=== PATIENT | female | born 1960 | race Caucasian/White ===

== ENCOUNTER → 2024-03-03 21:53 | Outpatient (ROUT) | payer MEDICARE, SELFPAY | PROVIDERS: Visit Provider Registered Nurse | DX: N39.0 Urinary tract infection, site not specified (principal) | CPT/HCPCS: 87086 ==

== ENCOUNTER 2024-03-09 13:05 | Emergency (ER) | payer MEDICARE, SELFPAY ==
[2024-03-09] VITALS (8 sets, daily range): BP systolic 106–128; BP diastolic 69–87; PULSE 40–109; RESP 12–22; TEMP 36.4; O2SAT 82–98; BMI 15.3
--- NOTE | 2024-03-09 13:09 | ED_ITS ---
HPI - Eye Problem General Chief complaint: Neuro Symptoms/Deficit Stated complaint: L Fixed Pupil Time Seen by Provider: 03/09/24 13:08 History of Present Illness HPI Narrative: Patient is a 63-year-old female history of COPD on oxygen presenting today with left 6th dilated pupil. She is currently residing at [facility] she was admitted to would be hospital for a COPD exacerbation and pneumonia. She really has no complaints but feels like her allergies are acting up. She says that her eyes are goopy but there is no gross drainage she does not continually wiped them. She has not put any new drops in her eyes. She has not on any sort of anticoagulation or antiplatelet medication. She has no numbness tingling or weakness. She has a slight headache but no significant nausea or vomiting. She has no chest pain or worsening shortness of breath. Records from [facility] has been received and reviewed she was admitted on February 22 with pneumonia sepsis and COPD exacerbation. She was given steroids bronchodilators and antibiotics. She was admitted for about 3 days and discharged to a retirement facility. She has severe COPD there is a pulsed form that says do not resuscitate Related Data Allergies Allergy/AdvReac Type Severity Reaction Status Date / Time No Known Drug Allergies Allergy Verified 03/09/24 13:44 Patient History Social History Smoking Status: Former smoker Exam Initial Vital Signs Initial Vital Signs: Vital Signs Pulse Oximetry 82 L 03/09/24 13:09 GENERAL: Alert chronically ill 63-year-old female appears older than stated age HEENT: Head atraumatic,EOMI, pupils reactive, EOMI-left eye more dilated than the right sluggish to respond does not completely close Right pupil more normal CARDIOVASCULAR: Regular rate and rhythm without murmurs, rubs or gallops. RESPIRATORY: Breath sounds equal bilaterally, no wheezes rales or rhonchi. ABDOMEN: Soft, nontender. Normoactive bowel sounds all 4 quadrants. No guarding or rebound. EXTREMITIES: Normal range of motion, no clubbing or edema. Neurovascularly intact NEUROLOGICAL: Alert and oriented x4.Normal gait and speech. Cranial nerves II through XII grossly intact. Good mnawjc-bp-ibzd, good mjys-gl-ekme, strength equal bilaterally, no dysarthria or aphasia, sensation in tact to soft touch bilaterally, no visual changes, no facial droop SKIN: Warm, dry, no laceration, no petechiae, no rashes or lesions. Scores NIH Stroke Scale Level of Conciousness: Alert, keenly responsive Ask month/age: Answers both questions correctly. Open/close eyes, close hand: Performs both tasks correctly Best gaze horizontal: Normal Visual paredes: No visual loss Facial palsy: Normal symetrical movement Left arm drift: No drift for full 10 sec Right arm drift: No drift for full 10 sec Left leg drift: No drift for full 5 sec Right leg drift: No drift for full 5 sec Limb ataxia: Absent Sensory on face/arms/legs: Normal, no sensory loss Best language: No aphasia, normal Dysarthria: Normal Extinction or inattention: No abnormality Total NIH Stroke scale score: 0 Course Orders Ordered: ED Orders 03/09/24 13:26 CT angio head and neck Stat CT head/brain wo con Stat 03/09/24 13:39 CBC Auto Diff [Complete Blood Count AUTO DIFF] Stat CMP [Comprehensive Metabolic Panel] Stat Discontinued Medications Acetaminophen (Acetaminophen 325 Mg Tablet) 975 mg PO NOW ONE Stop: 03/09/24 14:16 Last Admin: 03/09/24 14:47 Dose: 975 mg Documented By: JERRY Vital Signs Vital signs: Vital Signs - 8 hr 03/09/24 13:09 03/09/24 13:10 03/09/24 13:10 Temperature Pulse Rate 40 L Respiratory Rate Blood Pressure 122/87 Pulse Oximetry 82 L 84 L Oxygen Delivery Method Oxygen Flow Rate 03/09/24 13:13 03/09/24 13:30 03/09/24 13:30 Temperature 97.6 F Pulse Rate 107 H 105 H Respiratory Rate 22 22 Blood Pressure 122/87 128/84 Pulse Oximetry 93 97 Oxygen Delivery Method Nasal Cannula Oxygen Flow Rate 2 03/09/24 13:57 03/09/24 13:57 03/09/24 14:00 Temperature Pulse Rate 109 H Respiratory Rate 21 Blood Pressure 120/78 126/82 Pulse Oximetry 95 Oxygen Delivery Method Oxygen Flow Rate 03/09/24 14:00 03/09/24 14:30 03/09/24 14:30 Temperature Pulse Rate 104 H 93 H Respiratory Rate 17 12 Blood Pressure 118/69 Pulse Oximetry 98 97 Oxygen Delivery Method Oxygen Flow Rate 03/09/24 16:10 03/09/24 16:10 Temperature Pulse Rate 92 H Respiratory Rate Blood Pressure 106/75 Pulse Oximetry 95 Oxygen Delivery Method Oxygen Flow Rate MDM - Eye Problem Lab Data 03/09/24 13:39 03/09/24 13:39 Labs: Lab Results 03/09/24 Range/Units 13:39 WBC 12.4 H (4.5-11.0) X10^3/uL RBC 3.47 L (4.0-5.2) X10^6/uL Hgb 10.7 L (12.0-16.0) g/dL Hct 32.6 L (36-46) % MCV 93.8 (80-100) fL MCH 30.9 (26-34) PG MCHC 32.9 (30-36) % RDW 14.9 H (11.6-14.8) % Plt Count 307 (150-400) X10^3/uL Neut % (Auto) 85.4 H (50-75) % Lymph % (Auto) 7.8 L (25-40) % [place] % (Auto) 5.4 (3-14) % Eos % (Auto) 0.8 L (2-4) % Baso % (Auto) 0.6 (0-2) % Neut # (Auto) 17142 H (6370-0307) /uL Lymph # (Auto) 1000 L (0646-4323) /uL [place] # (Auto) 700 (0-900) /uL Eos # (Auto) 100 (0-450) /uL Baso # (Auto) 100 (0-100) /uL Sodium 132 L (137-145) mmol/L Potassium 4.3 (3.4-5.1) mmol/L Chloride 95 L (98-107) mmol/L Carbon Dioxide 32 (22-32) mmol/L BUN 19 H (7-17) mg/dL Creatinine 0.42 L (0.52-1.04) mg/dL Estimated GFR > 60 (>60) mL/min BUN/Creatinine Ratio 45.2 H (6-22) Glucose 78 L (80-110) mg/dL Calcium 8.7 (8.4-10.2) mg/dL Total Bilirubin 0.7 (0.2-1.3) mg/dL AST 36 (14-36) IU/L ALT 10 (<35) IU/L Alkaline Phosphatase 90 (38-126) U/L Total Protein 7.3 (6.3-8.2) g/dL Albumin 4.1 (3.5-5.0) g/dL Globulin 3.2 (1.7-4.1) g/dL Albumin/Globulin Ratio 1.3 (1.0-2.8) Imaging Data CT scan - head: Radiologist's Impression: PROCEDURE: CT HEAD/BRAIN WO CON INDICATIONS: dilated left pupil TECHNIQUE: Noncontrast 4.5 mm thick angled axial sections acquired from the foramen magnum to the vertex, with coronal and sagittal reformats. For radiation dose reduction, the following was used: automated exposure control, adjustment of mA and/or kV according to patient size. COMPARISON: None. FINDINGS: Image quality: Diagnostic. CSF spaces: Basal cisterns are patent. No extra-axial fluid collections. The ventricles are symmetric in size and shape. Brain: No intracranial bleeds or masses. There is cerebral volume loss for age, with resultant ventricular and sulcal prominence. There are periventricular and deep white matter chronic small vessel ischemic changes. There is intracranial internal carotid artery atherosclerosis. Skull and face: Calvarium and visualized facial bones appear intact, without suspicious lesions. Sinuses: Visualized sinuses and mastoids are clear. IMPRESSION: 1. CT head without acute intracranial abnormalities or acute calvarial fractures. 2. Age-related senescent changes and sequela of chronic small vessel ischemic disease. Dictated by: Alfredo Veloz M.D. on 03/09/2024 at 14:06 CTA - brain/neck: Radiologist's Impression: PROCEDURE: CT ANGIO HEAD AND NECK INDICATIONS: dilated pupil left TECHNIQUE: After the administration of intravenous contrast, 1 mm thick sections acquired from the aortic arch through the [place] of [place]. 3-dimensional lweapuj-ntvwpczsw-zbiodsyqsf (MIP) and/or volume rendering reformats were acquired of the central intracranial vasculature and neck separately. For radiation dose reduction, the following was used: automated exposure control, adjustment of mA and/or kV according to patient size. COMPARISON: [facility], CT, CT CERVICAL SPINE WITHOUT CONTRAST, 03/01/2022, 16:07. [facility], CT, CT HEAD/BRAIN WO CON, 03/09/2024, 13:51. FINDINGS: Image quality: Limited by patient kyphosis. This examination is limited by involuntary motion artifact. BRAIN: CSF spaces: Ventricles are normal in size and shape. Basal cisterns are patent. No extra-axial fluid collections. There is streak artifact seen through the level of the shoulders. Brain: No significant abnormality of the brain can be seen. Skull and face: Calvarium and facial bones appear intact, without suspicious lesions. Orbits appear normal. Sinuses: Sinuses and mastoids are clear. HEAD CT ANGIOGRAPHY: Anterior circulation: Intracranial internal carotid arteries are normal in size and flow. The flow within the paired anterior cerebral arteries is normal and symmetric. The flow within the middle cerebral arteries is normal and symmetric. The anterior communicating artery is seen. No aneurysms are seen. Posterior circulation: Visualized portions of the vertebral arteries demonstrate normal caliber, and join to form a normal appearing basilar artery. There is a prominent right posterior communicating artery seen, with an accompanying diminutive right P1 segment. This is attributed to a type origin of the right posterior cerebral artery, which is considered to be a normal developmental variant of typically no clinical consequence. The flow within the posterior cerebral arteries is normal and symmetric. No aneurysms are seen. NECK CT ANGIOGRAPHY: Carotid system: The great vessels demonstrate a conventional anatomy as they arise from the aortic arch. The origins of the common carotid arteries appear patent. The common carotid arteries demonstrate normal caliber. Medialization is noted of the common carotid arteries, as on series 2, image 212. The bifurcation regions are both widely patent. The internal carotid arteries demonstrate normal calibers and courses. Posterior circulation: The origins of the vertebral arteries both appear widely patent. The more superior extracranial portions of both vertebral arteries also demonstrate normal courses and calibers. They join to form a normal appearing basilar artery. Soft tissues: Visualized neck soft tissues demonstrate no suspicious abnormalities. Emphysematous changes can be seen at the lung apices. Bones: No suspicious bony lesions. Visualized cervical spine appears normally aligned. Advanced cervical spine degenerative change can be seen. There is significant reversal of the normal cervical lordosis. There is anterolisthesis seen at C2-C3, C3-C4, and C4-C5. IMPRESSION: No significant intracranial arterial abnormality is seen. Negative for aneurysm. No significant abnormality is seen within the arteries of the neck. Additional findings: Xsdofr-di-Tkzkbi developmental anomalies Medialization of the common carotid arteries Advanced cervical spine degenerative change, with alignment abnormalities Emphysematous change Any quantitative measurements of stenosis were performed using NASCET criteria. Dictated by: Aelxsander Momin M.D. on 03/09/2024 at 13:14 MDM Narrative Medical decision making narrative: Patient 63-year-old female history of COPD on chronic oxygen presenting today with abnormal left people. She really has minimal complaints. It sounds like she has had some sort of eye irritation ongoing for awhile she reports that she keeps trying to open her eye. She is complaining of some sort of allergies but there is no gross drainage or conjunctivitis. She is afebrile overall appears well. Left pupil is noted to be more dilated than the right but she really has no other focal deficits NIH stroke scale is 0. She has not on anticoagulation . CT noncontrast head does not show any sort of intracranial hemorrhage and CT angio does not show any sort of aneurysm. Patient denies any sort of topical drops she reports that she has a retirement facility she has a lot have any sort of drop her medication. She had a visual acuity done as well. At this time I recommend that she follow-up with ophthalmology. At this time she overall appears well nontoxic no focal deficits. She has isolated left sluggish dilated left pupil. Recommend Ophthalmology follow-up. Discharge Plan Departure Patient Disposition: Home Clinical Impression: Pupil dilated Activity Restrictions/Additional Instructions: *You have been diagnosed with dilated pupil *What to do: At this time head CT and CT angio do not show reason for a dilated pupil. No mass or hemorrhage. I do strongly recommend that you follow-up with ophthalmology. Also try not to touch your eye *Continue to take medications as directed *Follow up with your primary care provider in 2-3 days or call [phone] *Return to ER if you should have increasing blurry vision double vision, weakness nausea vomiting headache or any new, worsening or concerning symptoms Stand Alone Forms: Patient Portal/API
--- NOTE | 2024-03-09 13:26 | DI.CT.S_ITS ---
PROCEDURE: CT HEAD/BRAIN WO CON INDICATIONS: dilated left pupil TECHNIQUE: Noncontrast 4.5 mm thick angled axial sections acquired from the foramen magnum to the vertex, with coronal and sagittal reformats. For radiation dose reduction, the following was used: automated exposure control, adjustment of mA and/or kV according to patient size. COMPARISON: None. FINDINGS: Image quality: Diagnostic. CSF spaces: Basal cisterns are patent. No extra-axial fluid collections. The ventricles are symmetric in size and shape. Brain: No intracranial bleeds or masses. There is cerebral volume loss for age, with resultant ventricular and sulcal prominence. There are periventricular and deep white matter chronic small vessel ischemic changes. There is intracranial internal carotid artery atherosclerosis. Skull and face: Calvarium and visualized facial bones appear intact, without suspicious lesions. Sinuses: Visualized sinuses and mastoids are clear. IMPRESSION: 1. CT head without acute intracranial abnormalities or acute calvarial fractures. 2. Age-related senescent changes and sequela of chronic small vessel ischemic disease. Dictated by: Alfredo Veloz M.D. on 03/09/2024 at 14:06 Approved by: Alfredo Veloz M.D. on 03/09/2024 at 14:08
--- NOTE | 2024-03-09 13:26 | DI.CT.S_ITS ---
PROCEDURE: CT ANGIO HEAD AND NECK INDICATIONS: dilated pupil left TECHNIQUE: After the administration of intravenous contrast, 1 mm thick sections acquired from the aortic arch through the [place] of [place]. 3-dimensional teercez-jneilevaj-wudjhslrwu (MIP) and/or volume rendering reformats were acquired of the central intracranial vasculature and neck separately. For radiation dose reduction, the following was used: automated exposure control, adjustment of mA and/or kV according to patient size. COMPARISON: [facility], CT, CT CERVICAL SPINE WITHOUT CONTRAST, 03/01/2022, 16:07. [facility], CT, CT HEAD/BRAIN WO CON, 03/09/2024, 13:51. FINDINGS: Image quality: Limited by patient kyphosis. This examination is limited by involuntary motion artifact. BRAIN: CSF spaces: Ventricles are normal in size and shape. Basal cisterns are patent. No extra-axial fluid collections. There is streak artifact seen through the level of the shoulders. Brain: No significant abnormality of the brain can be seen. Skull and face: Calvarium and facial bones appear intact, without suspicious lesions. Orbits appear normal. Sinuses: Sinuses and mastoids are clear. HEAD CT ANGIOGRAPHY: Anterior circulation: Intracranial internal carotid arteries are normal in size and flow. The flow within the paired anterior cerebral arteries is normal and symmetric. The flow within the middle cerebral arteries is normal and symmetric. The anterior communicating artery is seen. No aneurysms are seen. Posterior circulation: Visualized portions of the vertebral arteries demonstrate normal caliber, and join to form a normal appearing basilar artery. There is a prominent right posterior communicating artery seen, with an accompanying diminutive right P1 segment. This is attributed to a type origin of the right posterior cerebral artery, which is considered to be a normal developmental variant of typically no clinical consequence. The flow within the posterior cerebral arteries is normal and symmetric. No aneurysms are seen. NECK CT ANGIOGRAPHY: Carotid system: The great vessels demonstrate a conventional anatomy as they arise from the aortic arch. The origins of the common carotid arteries appear patent. The common carotid arteries demonstrate normal caliber. Medialization is noted of the common carotid arteries, as on series 2, image 212. The bifurcation regions are both widely patent. The internal carotid arteries demonstrate normal calibers and courses. Posterior circulation: The origins of the vertebral arteries both appear widely patent. The more superior extracranial portions of both vertebral arteries also demonstrate normal courses and calibers. They join to form a normal appearing basilar artery. Soft tissues: Visualized neck soft tissues demonstrate no suspicious abnormalities. Emphysematous changes can be seen at the lung apices. Bones: No suspicious bony lesions. Visualized cervical spine appears normally aligned. Advanced cervical spine degenerative change can be seen. There is significant reversal of the normal cervical lordosis. There is anterolisthesis seen at C2-C3, C3-C4, and C4-C5. IMPRESSION: No significant intracranial arterial abnormality is seen. Negative for aneurysm. No significant abnormality is seen within the arteries of the neck. Additional findings: Lrobbs-dv-Zotvwg developmental anomalies Medialization of the common carotid arteries Advanced cervical spine degenerative change, with alignment abnormalities Emphysematous change Any quantitative measurements of stenosis were performed using NASCET criteria. Dictated by: Alexsander Momin M.D. on 03/09/2024 at 13:14 Approved by: Alexsander Momin M.D. on 03/09/2024 at 13:19
[2024-03-09 13:46] LABS: Add Manual Diff / Slide Review NO; Basophils Absolute Auto 100 /uL (0-100); Basophils Percent Auto 0.6 % (0-2); Eosinophils Absolute Auto 100 /uL (0-450); Eosinophils Percent Auto 0.8 % (2-4); Hematocrit 32.6 % (36-46); Hemoglobin 10.7 g/dL (12.0-16.0); Lymphocytes Absolute Auto 1000 /uL (1100-4500); Lymphocytes Percent Auto 7.8 % (25-40); Mean Corpuscular HGB Conc 32.9 % (30-36); Mean Corpuscular Hemoglobin 30.9 PG (26-34); Mean Corpuscular Volume 93.8 fL (80-100); Monocytes Absolute Auto 700 /uL (0-900); Monocytes Percent Auto 5.4 % (3-14); Neutrophils Absolute Auto 10600 /uL (1500-7000); Neutrophils Percent Auto 85.4 % (50-75); Platelet Count 307 X10^3/uL (150-400); Red Blood Cell Count 3.47 X10^6/uL (4.0-5.2); Red Cell Distribution Width 14.9 % (11.6-14.8); White Blood Cell Count 12.4 X10^3/uL (4.5-11.0)
[2024-03-09 13:58] LABS: Alanine Aminotransferase 10 IU/L (<35); Albumin 4.1 g/dL (3.5-5.0); Albumin Globulin Ratio 1.3 (1.0-2.8); Alkaline Phosphatase 90 U/L (38-126); Aspartate Aminotransferase 36 IU/L (14-36); BUN Creatinine Ratio 45.2 (6-22); Bilirubin Total 0.7 mg/dL (0.2-1.3); Blood Urea Nitrogen 19 mg/dL (7-17); Calcium 8.7 mg/dL (8.4-10.2); Carbon Dioxide 32 mmol/L (22-32); Chloride 95 mmol/L (98-107); Estimated Glomerular Filt Rate > 60 mL/min (>60); Globulin 3.2 g/dL (1.7-4.1); Glucose 78 mg/dL (80-110); HEMOLYSIS 31 (0-50); Potassium 4.3 mmol/L (3.4-5.1); Sodium 132 mmol/L (137-145); Total Protein 7.3 g/dL (6.3-8.2)
[2024-03-09] MEDS: ACETAMINOPHEN 325 MG TABLET 975 MG PO (14:47)
== END 2024-03-09 16:26 | disposition home or self-care (01) ==
PROVIDERS: Emergency Provider Emergency Medicine
DX: H57.04 Mydriasis (principal)
CPT/HCPCS: 70450; 70496; 70498; 80053; 85025; 99284; Q9967

== ENCOUNTER → 2024-09-15 13:41 | Outpatient (CLI) | payer MEDICARE, SELFPAY ==
--- NOTE | 2024-09-15 13:43 | DI.CT.S_ITS ---
PROCEDURE: CT CHEST WO CON INDICATIONS: emphysema, weight loss, eval for lung mass TECHNIQUE: Noncontrast 5 mm thick sections acquired from the pulmonary apices to the posterior costophrenic angles. 1 mm lung window, 5 mm thick coronal and sagittal and 7 mm axial MIP reformats were then acquired. For radiation dose reduction, the following was used: automated exposure control, adjustment of mA and/or kV according to patient size. COMPARISON: [facility], CT, CT ANGIO CHEST PE, 03/01/2022, 16:07. FINDINGS: Image quality: Diagnostic Lungs and pleura: Severe emphysema. Bilateral bronchial wall thickening and mucous plugging especially in the lower lobes. In the right lower lobe, there is a masslike consolidation measuring 5.7 x 3.4 cm. More ill-defined opacities and probable segmental areas of atelectasis with centrilobular nodules seen in the left lower lobe. Mild centrilobular nodules likely infectious and inflammatory, also seen in the right lower lobe. No pleural effusions. Mediastinum, heart, and esophagus: Coronary calcifications. No definite enlarged lymph nodes, although evaluation is limited on this noncontrast study. Esophagus is unremarkable. Chest wall and thyroid: Right anterior chest wall lesion measures 2.7 x 2.2 cm. Upper abdomen: There are degenerative changes. Bones: There are degenerative changes. IMPRESSION: Masslike consolidation in the right lower lobe is present. Background severe emphysema. Consider PET-CT, sampling and/or short interval follow-up chest CT with contrast to further evaluate possible malignancy. Bilateral segmental atelectasis and centrilobular nodules, suspicious for concurrent infection/inflammation. No pleural effusions. Coronary calcifications. Incidentally noted right anterior chest wall nodule, which is likely palpable. Diagnostic mammogram could be performed if possible (overall patient appearance on imaging is cachectic). Ultrasound is recommended. Dictated by: Gurmeet Bunn M.D. on 09/15/2024 at 16:24 Approved by: Gurmeet Bunn M.D. on 09/15/2024 at 16:31
== END ==
LOC: CT 13:42
PROVIDERS: PCP Nurse Practitioner Family; Referring Provider Internal Medicine Critical Care Medicine; Visit Provider Internal Medicine Critical Care Medicine
DX: J44.9 Chronic obstructive pulmonary disease, unspecified (principal); R91.8 Other nonspecific abnormal finding of lung field; J98.11 Atelectasis; I25.10 Atherosclerotic heart disease of native coronary artery without angina pectoris; R22.2 Localized swelling, mass and lump, trunk
CPT/HCPCS: 71250

== ENCOUNTER → 2024-10-03 15:36 | Outpatient (CLI) | payer MEDICARE, SELFPAY | PROVIDERS: PCP Nurse Practitioner Family; Referring Provider Internal Medicine Critical Care Medicine; Visit Provider Internal Medicine Critical Care Medicine | DX: R05.9 Cough, unspecified (principal); J98.8 Other specified respiratory disorders; R94.2 Abnormal results of pulmonary function studies; J96.21 Acute and chronic respiratory failure with hypoxia; J43.2 Centrilobular emphysema | CPT/HCPCS: 94060; 94726; 94729 ==